=== PATIENT | male | born 1965 | race Caucasian/White ===

== ENCOUNTER 2023-01-29 09:37 | Day surgery (SDC) | payer BC ==
[2023-01-25 11:24] VITALS: BMI 22.8
[2023-01-29] MEDS ORDERED: Succinylcholine 200 MG/10 ml SYRINGE FS ONE (13:50)
[2023-01-29] MEDS ORDERED: CEFAZOLIN 1 GM VIAL ONE (13:50)
[2023-01-29] MEDS ORDERED: PROPOFOL 20 ML ONE (13:51)
[2023-01-29] MEDS ORDERED: PHENYLEPHRINE-NS 100 MCG/ML 10 ML SYRINGE ONE (13:51)
[2023-01-29] MEDS ORDERED: PROPOFOL 0 ML ONE (13:51)
[2023-01-29] MEDS ORDERED: CEFAZOLIN 2 GM VIAL ONE (13:52)
[2023-01-29] MEDS ORDERED: fentaNYL 50 mcg/mL 1 mL Vial ONE (13:52)
[2023-01-29] MEDS ORDERED: ePHEDrine Sulfate 50 MG/10 ML VIAL ONE (14:18)
[2023-01-29] MEDS ORDERED: Lidocaine 1% w/Epinephrine 1:100K 20 ML VIAL ONE (14:26)
[2023-01-29] MEDS ORDERED: Mupirocin 2% Ointment 22 GM Tube ONE (14:43)
== END 2023-01-29 16:18 | disposition home or self-care (01) ==
LOC: CSHSDC 09:37
PROVIDERS: ATTEND Otolaryngology Plastic Surgery within the Head & Neck
PROC: 0HB4XZX Excision of Neck Skin, External Approach, Diagnostic (ICD-10-PCS; principal; 2023-01-29)
DX: R22.1 Localized swelling, mass and lump, neck (principal); Z90.89 Acquired absence of other organs
CPT/HCPCS: 87070; 87077; 87205; 88184; 88305; 88312; J0690; J2704; J3010